=== PATIENT | male | born 1980 | race Two or more races ===

== ENCOUNTER 2025-04-27 08:36 | Inpatient (IN) ==
[2025-04-27] MEDS: OPTIRAY 320 125ml IV ONE (08:50)
--- NOTE | 2025-04-27 08:57 | CT Scan Report ---
CT head/brain wo con CLINICAL HISTORY: 45 years-old Male with neuro deficit, acute stroke suspected. Acute stroke like sy mptoms TECHNIQUE: Multiple axial CT images of the head were obtained without contrast. A dose lowering tech nique was utilized adhering to the principles of ALARA. COMPARISON: CTA head of same day FINDINGS: No acute intracranial hemorrhage, midline shift, intracranial mass, hydrocephalus, territorial ischem ia or abnormal extra-axial collection. The calvarium is intact. The paranasal sinuses, mastoid air cells, and middle ear cavities are clear . IMPRESSION: No acute intracranial abnormality. ACT 112: Negative or not required by law. The above report was generated using voice recognition software. It may contain grammatical, syntax o r spelling errors. Electronically signed by: Logan Gutierrez M.D. 04/27/2025 8:55 AM
--- NOTE | 2025-04-27 08:57 | CT Scan Report ---
CT ANGIOGRAPHY OF THE NECK WITH CONTRAST CLINICAL HISTORY: neuro deficit, acute stroke suspected COMPARISON STUDY: No previous studies for comparison. Technique: CT angiography of the carotid and vertebral arteries was obtained using Optiray and 3D rec onstruction on an independent workstation. NASCET criteria was utilized. Automated exposure control was utilized for the study. A dose lowering technique was utilized adhering to the principles of ALA RA. CT DOSE: 1153.16 mGy.cm Findings: Visualized portions of the lung apices are unremarkable. There is no cervical lymphadenopat hy. There are no cervical spine fractures. The bilateral common carotid, cervical internal carotid an d vertebral arteries are patent. No stenosis, aneurysm or dissection within the neck is present. Plea se note that the CTA of the head will be reported separately. IMPRESSION: Unremarkable CTA of the neck. ACT 112: Negative or not required by law. Electronically signed by: Kaushik Cui M.D. 04/27/2025 8:56 AM
--- NOTE | 2025-04-27 08:59 | CT Scan Report ---
CT angio head w con CLINICAL HISTORY: neuro deficit, acute stroke suspected. TECHNIQUE: Unenhanced axial CT scan of the brain is performed. Subsequently, following the IV adminis tration of 120 cc of Optiray, CT angiogram of the brain was performed from the skull base to the vert ex. Images are reviewed in the axial, sagittal, and coronal planes. 3-D MIPS images are created and a ssessed. IV contrast was administered without complication. All measurements were obtained according to NASCET criteria. A dose lowering technique was utilized adhering to the principles of ALARA. CT DOSE: 1153 COMPARISON STUDY: Head CT earlier today FINDINGS: Distal internal carotid and vertebral arteries are patent. Basilar artery is widely patent. Anterior, middle, and posterior cerebral arteries are patent. No intracranial aneurysm seen. Cerebra l venous sinuses opacify normally. IMPRESSION: No significant arterial narrowing or occlusion seen at the brain. ACT 112: Negative or not required by law. The above report was generated using voice recognition software. It may contain grammatical, syntax o r spelling errors. Electronically signed by: Vega Lemons M.D. 04/27/2025 8:57 AM
[2025-04-27 09:00] LABS: Hematocrit (blood only) 39.8 % (42.0-52.0); Hemoglobin 13.8 g/dl (14.0-18.0); Immature Granulocytes # (auto) 0.02 K/uL (0.01-0.20); Immature Granulocytes % (auto) 0.2 %; Mean Corpuscular Hemoglobin 30.1 pg (25.0-34.0); Mean Corpuscular Volume 86.9 fL (80.0-100.0); Platelet Count 198 K/uL (130-400); RDW Standard Deviation 37.8 fL (36.4-46.3); Red Blood Count 4.58 M/uL (4.70-6.10); White Blood Count 8.76 K/ul (4.8-10.8)
[2025-04-27 09:11] LABS: INR 1.1 (0.9-1.1); Partial Thromboplastin Time 22 Seconds (21-31); Prothrombin Time 12.3 Seconds (9.0-12.0)
--- NOTE | 2025-04-27 09:17 | Emergency Department Note ---
History of Present Illness General Chief complaint: Stroke Alert Stated complaint: STROKE ALERT Time Seen by Provider: 04/27/25 08:39 Source: patient Mode of arrival: EMS Limitations: no limitations History of Present Illness Patient is a 45-year-old male who presents this morning after he started to develop some dizziness and ambulatory dysfunction. He says he woke up around 6:30 in the morning feeling fine. He then developed sudden onset room spinning dizziness. When he got up to go to the bathroom he was "falling into the wall and door". When EMS arrived patient was still unsteady on his feet. He is from [facility] and does have an accent however family did note to EMS The speech sounds slurred to them. Repeat blood glucose level 198 per EMS. He did receive 4 mg of Zofran for associated nausea and vomiting. He does still report some mild room spinning dizziness at rest. No drug or ETOH use reported. Home Medications Medication Instructions Recorded Confirmed Type No Known Home Medications 11/10/24 04/27/25 History Allergies Allergy/AdvReac Type Severity Reaction Status Date / Time No Known Allergies Allergy Verified 11/10/24 13:45 Past Med/Surg History Problem List (Updated 04/27/25 @ 11:33 by Jose Bañuelos MD) Ataxia (Acute) Dizziness (Acute) Medical History (Updated 04/27/25 @ 11:33 by Jose Bañuelos MD) No pertinent past medical history Surgical History No pertinent past surgical history Family History Denies family history of Ovarian cancer Prostate cancer Heart disease Myocardial infarction Breast cancer Colorectal cancer Social History Smoking Status: Never smoker Second Hand Exposure: No; Do You Dip or Chew Tobacco: No; Hx Alcohol Use: No Hx Substance Use: No Preferred Language: Macedonian Communication Ability: Effective Visual Impairment: No Limitations Hearing Ability: Normal marital status: Current Living Situation: Alone current occupational status: employed How many Children do You have: 2 Feels Safe at Home: Yes Childhood Exposure to Second-Hand Smoke: No Diet: regular caffeine: No during the past year weight has: remained stable Dental Care, Regularly: Yes Physical Activity Frequency: 3-4 Times per Week Seatbelt Use: always Sunscreen Use: Yes Do you think of yourself as: straight/heterosexual Gender Identity: Male Review of Systems Review of systems negative outside of positive findings mentioned in HPI. Right Physical Exam Vital Signs Vital Signs - 24 hr 04/27/25 08:52 04/27/25 08:56 04/27/25 08:56 Temperature 36.5 C 36.5 C Temperature Source Oral Oral Pulse Rate 86 Pulse Rate [Apical] 86 Pulse Rhythm [Apical] Pulse Strength [Apical] Respiratory Rate 13 13 Respiratory Effort / Characteristics Respiratory Depth Respiratory Pattern Blood Pressure 141/80 H Blood Pressure [Right Arm] 141/80 H Blood Pressure Mean 100 Blood Pressure Mean [Right Arm] 100 Blood Pressure Position [Right Arm] Pulse Oximetry 99 99 Oxygen Delivery Method Room Air Room Air Room Air Sepsis Recent Fever Within 48 Hours No Sepsis New/Unexplained Change in Mental Status N/A Sepsis Action Taken by Nursing No Action Required Pulse Oximetry Post Tiitration 99 04/27/25 08:56 04/27/25 09:00 04/27/25 09:00 Temperature 36.5 C Temperature Source Oral Pulse Rate 70 Pulse Rate [Apical] 86 72 Pulse Rhythm [Apical] Regular Pulse Strength [Apical] Normal Respiratory Rate 13 18 Respiratory Effort / Characteristics Non-Labored Spontaneous Respiratory Depth Normal Respiratory Pattern Regular Blood Pressure Blood Pressure [Right Arm] 141/80 H 130/70 Blood Pressure Mean Blood Pressure Mean [Right Arm] 100 90 Blood Pressure Position [Right Arm] Pulse Oximetry 99 99 Oxygen Delivery Method Room Air Room Air Sepsis Recent Fever Within 48 Hours Sepsis New/Unexplained Change in Mental Status Sepsis Action Taken by Nursing Pulse Oximetry Post Tiitration 04/27/25 09:30 04/27/25 10:00 04/27/25 11:22 Temperature Temperature Source Pulse Rate Pulse Rate [Apical] 61 58 L 66 Pulse Rhythm [Apical] Regular Regular Pulse Strength [Apical] Normal Normal Respiratory Rate 20 16 18 Respiratory Effort / Characteristics Non-Labored Spontaneous Non-Labored Spontaneous Non-Labored Spontaneous Respiratory Depth Normal Normal Normal Respiratory Pattern Regular Regular Blood Pressure Blood Pressure [Right Arm] 134/65 115/71 129/64 Blood Pressure Mean Blood Pressure Mean [Right Arm] 88 85 85 Blood Pressure Position [Right Arm] Lying Pulse Oximetry 98 97 98 Oxygen Delivery Method Room Air Room Air Room Air Sepsis Recent Fever Within 48 Hours Sepsis New/Unexplained Change in Mental Status Sepsis Action Taken by Nursing Pulse Oximetry Post Tiitration See below. Constitutional WD/WN, vitals as above Eyes PERRL, conjunctivae normal, anicteric sclerae ENMT external ear and nose normal, oropharynx normal Respiratory normal respiratory effort, lungs clear to auscultation Cardiovascular RRR, no murmur, no edema Neurologic AAO x 3, cranial nerves II through XII are intact, 5 out of 5 strength in the upper extremities bilaterally, 5 out of 5 strength in lower extremities bilaterally, no sensation deficits noted to the large dermatomes of the face or extremities, dysmetria noted in both upper extremities on finger-nose testing, no dysmetria in the lower extremities, normal speech, NIH stroke scale of 2 Course Administered Medications Discontinued Medications Aspirin (Aspirin 81 Mg Chew) 81 mg PO NOW STA Stop: 04/27/25 10:33 Last Admin: 04/27/25 11:02 Dose: 81 mg Documented By: QGV Clopidogrel Bisulfate (Clopidogrel Bisulfate 300 Mg Tab) 300 mg PO NOW STA Stop: 04/27/25 10:21 Last Admin: 04/27/25 11:02 Dose: 300 mg Documented By: QGV Ioversol (Optiray 320 125ml) 118 ml IV ONCE ONE Stop: 04/27/25 08:50 Last Admin: 04/27/25 08:50 Dose: 118 ml Documented By: KSF Medical Decision Making Differential Diagnosis Posterior CVA, vertigo, labyrinthitis, atypical migraine Medical Records Attestation: I reviewed the patient's medical records. Home Medications Current Medication List: was personally reviewed by me Laboratory Data Attestation: I reviewed the patient's lab results. 04/27/25 08:51 04/27/25 08:51 Lab Results 04/27/25 04/27/25 04/27/25 Range/Units 08:50 08:51 08:55 WBC 8.76 (4.8-10.8) K/ul RBC 4.58 L (4.70-6.10) M/uL Hgb 13.8 L (14.0-18.0) g/dl POC Hgb 13.3 L (14.0-18.0) g/dl Hct 39.8 L (42.0-52.0) % POC Hct 39 L (42-52) % MCV 86.9 (80.0-100.0) fL MCH 30.1 (25.0-34.0) pg MCHC 34.7 (32.0-36.0) g/dL RDW Std Deviation 37.8 (36.4-46.3) fL RDW Coeff of Benny 11.9 (11.5-14.5) % Plt Count 198 (130-400) K/uL MPV 10.4 (9.4-12.4) fL Immature Gran % (Auto) 0.2 % Neut % (Auto) 80.8 % Lymph % (Auto) 12.4 % [place] % (Auto) 5.6 % Eos % (Auto) 0.7 % Baso % (Auto) 0.3 % Neut # (Auto) 7.07 H (1.40-6.50) K/uL Lymph # (Auto) 1.09 L (1.20-3.40) K/uL [place] # (Auto) 0.49 (0.11-0.59) K/uL Eos # (Auto) 0.06 (0.00-0.50) K/uL Baso # (Auto) 0.03 (0.00-0.20) K/uL Immature Gran # (Auto) 0.02 (0.01-0.20) K/uL PT 12.3 H (9.0-12.0) Seconds INR 1.1 (0.9-1.1) APTT 22 (21-31) Seconds PTT Ratio 0.8 POC Sodium 136 (135-144) mmol/L Sodium 133 L (136-145) mmol/L POC Potassium 3.6 (3.3-5.0) mmol/L Potassium 3.6 (3.5-5.1) mmol/L POC Chloride 100 L (101-112) mmol/L Chloride 103 (98-107) mmol/L Carbon Dioxide 23 (21-32) mmol/L POC Total CO2 19 L (24-31) mmol/L Anion Gap 7 (3-11) POC Anion Gap 21.0 (16-25) mmol/L POC BUN 14 (7-18) mg/dl BUN 15 (6-23) mg/dl Creatinine 0.95 (0.6-1.4) mg/dl POC Creatinine 1.0 (0.6-1.3) mg/dl Est Cr Clr Drug Dosing 101.4 ml/min eGFR 100.59 BUN/Creatinine Ratio 15.8 (10-20) Glucose 213 H (70-99(Fasting)) mg/dl POC Glucose 196 H (70-99) mg/dl POC Glucose (other) 200 H (70-99) mg/dl Calcium 8.3 L (8.6-10.3) mg/dl POC Ioniz Calcium [place] 1.09 L (1.12-1.32) mmol/l Magnesium 1.7 (1.7-2.4) mg/dl Total Bilirubin 3.0 H (0.2-1.0) mg/dl AST 17 (13-39) U/L ALT 14 (7-52) U/L Alkaline Phosphatase 35 (34-104) U/L Troponin I High Sens < 2.3 (0-20) pg/ml Total Protein 6.0 (6.0-8.3) gm/dl Albumin 3.7 (3.4-5.0) gm/dl Globulin 2.3 L (2.5-4.0) gm/dl Albumin/Globulin Ratio 1.6 (0.9-2) Blood Type AB Positive Antibody Screen NEGATIVE Imaging Data Radiologist's Impression: Head CT 04/27/25 08:39 CT head/brain wo con CLINICAL HISTORY: 45 years-old Male with neuro deficit, acute stroke suspected. Acute stroke like symptoms TECHNIQUE: Multiple axial CT images of the head were obtained without contrast. A dose lowering technique was utilized adhering to the principles of ALARA. COMPARISON: CTA head of same day FINDINGS: No acute intracranial hemorrhage, midline shift, intracranial mass, hydrocephalus, territorial ischemia or abnormal extra-axial collection. The calvarium is intact. The paranasal sinuses, mastoid air cells, and middle ear cavities are clear. IMPRESSION: No acute intracranial abnormality. ACT 112: Negative or not required by law. The above report was generated using voice recognition software. It may contain grammatical, syntax or spelling errors. Electronically signed by: Logan Gutierrez M.D. 04/27/2025 8:55 AM Head CTA 04/27/25 08:39 CT angio head w con CLINICAL HISTORY: neuro deficit, acute stroke suspected. TECHNIQUE: Unenhanced axial CT scan of the brain is performed. Subsequently, following the IV administration of 120 cc of Optiray, CT angiogram of the brain was performed from the skull base to the vertex. Images are reviewed in the axial, sagittal, and coronal planes. 3-D MIPS images are created and assessed. IV contrast was administered without complication. All measurements were obtained according to NASCET criteria. A dose lowering technique was utilized adhering to the principles of ALARA. CT DOSE: 1153 COMPARISON STUDY: Head CT earlier today FINDINGS: Distal internal carotid and vertebral arteries are patent. Basilar artery is widely patent. Anterior, middle, and posterior cerebral arteries are patent. No intracranial aneurysm seen. Cerebral venous sinuses opacify normally. IMPRESSION: No significant arterial narrowing or occlusion seen at the brain. ACT 112: Negative or not required by law. The above report was generated using voice recognition software. It may contain grammatical, syntax or spelling errors. Electronically signed by: Vega Lemons M.D. 04/27/2025 8:57 AM Neck CTA 04/27/25 08:39 CT ANGIOGRAPHY OF THE NECK WITH CONTRAST CLINICAL HISTORY: neuro deficit, acute stroke suspected COMPARISON STUDY: No previous studies for comparison. Technique: CT angiography of the carotid and vertebral arteries was obtained using Optiray and 3D reconstruction on an independent workstation. NASCET criteria was utilized. Automated exposure control was utilized for the study. A dose lowering technique was utilized adhering to the principles of ALARA. CT DOSE: 1153.16 mGy.cm Findings: Visualized portions of the lung apices are unremarkable. There is no cervical lymphadenopathy. There are no cervical spine fractures. The bilateral common carotid, cervical internal carotid and vertebral arteries are patent. No stenosis, aneurysm or dissection within the neck is present. Please note that the CTA of the head will be reported separately. IMPRESSION: Unremarkable CTA of the neck. ACT 112: Negative or not required by law. Electronically signed by: Kaushik Cui M.D. 04/27/2025 8:56 AM ECG Data Attestation: I personally reviewed and interpreted this ECG as follows: Indication: + other (CVA workup ) Rate (beats per minute): 81 Rhythm: + normal sinus ECG Intervals/blocks: + Normal QRS, + Normal QT and + Normal SC Comparison ECG Date: no prior available Change: no significant change MDM Narrative . Patient is a 45-year-old male who presents for dizziness and ataxia that started around 630 this morning. Last known well time was when he woke up around 6 AM. On arrival here in the emergency room he is still complaining of some room spinning dizziness and has some mild dysmetria on examination. His NIH stroke scale is 2. CT and CTA of the head and neck were ordered and nonconcerning for LVO or acute intracranial finding. Discussed the case with teleneurologist. He reviewed risks and benefits of TNK with the patient and decision was made to forego thrombolytics at this point with improvement and non-debilitating symptoms. Dual antiplatelet therapy was ordered per neurology's recommendations. Will admit for MRI and further CVA workup. Impression & Plan Dizziness, Ataxia Discharge Plan Visit Data Chief Complaint: Stroke Alert Stated Complaint: STROKE ALERT ED Provider: Jose Bañuelos Discharge Problem: Dizziness, Ataxia Patient Disposition: Admitted As Inpatient Condition: Good Forms Stand Alone Forms: [facility] Prescriptions Prescriptions: No Action No Known Home Medications Referrals Referrals: PCP,NO [Primary Care Provider] -
[2025-04-27 09:20] LABS: Alanine Aminotransferase 14 U/L (7-52); Albumin Globulin Ratio 1.6 (0.9-2); Alkaline Phosphatase 35 U/L (34-104); Anion Gap 7 (3-11); Bilirubin,Total 3.0 mg/dl (0.2-1.0); Blood Urea Nitrogen 15 mg/dl (6-23); Calcium 8.3 mg/dl (8.6-10.3); Carbon Dioxide 23 mmol/L (21-32); Chloride 103 mmol/L (98-107); Creatinine Clr Calc Pharmacy 101.4 ml/min; Globulin 2.3 gm/dl (2.5-4.0); Glucose 213 mg/dl (70-99(Fasting)); Magnesium 1.7 mg/dl (1.7-2.4); Potassium 3.6 mmol/L (3.5-5.1); Sodium 133 mmol/L (136-145); Total Protein 6.0 gm/dl (6.0-8.3)
[2025-04-27] MEDS ORDERED: ASPIRIN CHEW 324 MG PO STA (10:20)
[2025-04-27] MEDS: ASPIRIN 81 MG CHEW PO STA (11:02)
[2025-04-27] MEDS: CLOPIDOGREL BISULFATE 300 MG TAB PO STA (11:02)
--- NOTE | 2025-04-27 12:23 | Electrocardiogram Report ---
Test Reason : Blood Pressure : */* mmHG Vent. Rate : 81 BPM Atrial Rate : 81 BPM P-R Int : 184 ms QRS Dur : 100 ms QT Int : 402 ms P-R-T Axes : -24 -7 -24 degrees QTcB Int : 466 ms Normal sinus rhythm Low voltage QRS Cannot rule out Inferior infarct , age undetermined Abnormal ECG No previous ECGs available Confirmed by You Hart ([id number]) on 04/27/2025 12:23:48 PM Referred By: REFERRED SELF Confirmed By: You Hart
[2025-04-27 12:48] LABS: Hemoglobin A1C 5.0 % (4.5-5.6)
[2025-04-27 12:57] LABS: Bilirubin,Total 3.2 mg/dl (0.2-1.0); Cholesterol 154.0 mg/dl (0-200); HDL Cholesterol 58.0 mg/dl; Triglycerides 45.0 mg/dl (0-150)
--- NOTE | 2025-04-27 13:11 | History & Physical Report ---
Date of Service April 27, 2025 Assessment & Plan (1) Ataxia: (2) Dizziness: (3) Hyperbilirubinemia: Plan 45 year old male with no significant PMHx presents with acute onset vertigo with associated ambulatory dysfunction: #Dizziness // #Gait ataxia: CTH w/o contrast, CTA head and neck negative Initial presentation suspicious for posterior circulation stroke vs vestibular neuritis - MRI brain w/o contrast confirms presence of acute right cerebellar infarct - TTE pending - Start DAPT x21 days followed by aspirin monotherapy - Minimal vascular risk factors (A1c 5%, LDL 89, BP WNL), more likely cardioembolic etiology vs other (?vasculitis, will check ESR with AM labs) - Neurology consult placed, appreciate recs PT/OT eval and treat #Hyperbilirubinemia: Tbili 3.2, direct bili 0.2, likely Gilbert's disease Dispo: Admit med/tele VTE ppx: Lovenox Diet: Regular Full Code History of Present Illness Primary Care Provider: NO PCP 45 year old male with no significant PMHx presents with acute onset vertigo that started at 0630 this AM. Pt states that he immediately felt dizzy upon waking up, describes it as a spinning sensation. Constant but exacerbated with head position changes. Patient also experienced impaired balance, had a hard time walking straight after getting out of bed, denies favoring one side over the other. In addition to impaired balance, patient also states that he had bilateral LE weakness that contributed to gait impairment. Denies UE extremity weakness but states that he had transient bilateral UE numbness, now resolved. LE weakness now resolved as well. felt patient was mildly dysarthric initially, slurring slightly but patient did not necessarily notice any difference. Patient denies personal of FHx of stroke, SD, HTN, HLD, T2DM. Denies previous occurrence of similar sx. Denies recent illness, fever/chills. Denies changes in hearing acuity. Vertiginous sx have been continuous since waking up this morning, still present at this time though perhaps slightly less intense. Also reports nausea, brief episode of dry heaving first thing after getting up this morning. Denies significant EtOH or tobacco use. ED course: CT head w/o contrast, CTA head and neck all negative. S/P Plavix 300mg and ASA 81mg Allergies Allergy/AdvReac Type Severity Reaction Status Date / Time No Known Allergies Allergy Verified 11/10/24 13:45 Home Medications Medication Instructions Recorded Confirmed Type No Known Home Medications 11/10/24 04/27/25 History Past Med/Surg History Problem List (Updated 04/27/25 @ 13:24 by Juancarlos Bautista DO) Hyperbilirubinemia Ataxia (Acute) Dizziness (Acute) Medical History (Updated 04/27/25 @ 13:24 by Juancarlos Bautista DO) No pertinent past medical history Surgical History No pertinent past surgical history Family History Denies family history of Ovarian cancer Prostate cancer Heart disease Myocardial infarction Breast cancer Colorectal cancer Social History Smoking Status: Never smoker Second Hand Exposure: No; Do You Dip or Chew Tobacco: No; Hx Alcohol Use: No Hx Substance Use: No Preferred Language: Prydeinig Communication Ability: Effective Visual Impairment: No Limitations Hearing Ability: Normal Nut Tapper Required: No Beliefs That Will Affect Care: None marital status: Current Living Situation: Family current occupational status: employed How many Children do You have: 2 Feels Safe at Home: Yes Safety Concerns: Feels Safe At This Time Childhood Exposure to Second-Hand Smoke: No Diet: regular caffeine: No during the past year weight has: remained stable Dental Care, Regularly: Yes Physical Activity Frequency: 3-4 Times per Week Seatbelt Use: always Sunscreen Use: Yes Do you think of yourself as: straight/heterosexual Gender Identity: Male Review of Systems Review of Systems: as per HPI Physical Exam Physical Exam: Constitutional: no acute distress HEENT: NCAT, no conjunctival injection CV: RRR, extremities well-perfused, no LE edema Resp: Lungs clear to auscultation bilaterally, no increased work of breathing GI: nondistended MSK: no gross deformities, strength 5/5 in extremities, symmetrical bilaterally Skin: warm, dry, no rash appreciated Neuro: alert, oriented, no focal neurologic deficit appreciated. Cranial nn II- XII intact. Sensation intact, symmetrical bilaterally in face trunk and extremities. Strength 5/5 in upper and lower extremities, symmetrical bilaterally. +Romberg. Results & Data Results & Data Vital Signs (Past 12 Hours) Vital Signs Temp Pulse Pulse Resp BP BP Pulse Ox 04/27/25 12:35 57 L 18 129/66 97 04/27/25 11:22 66 18 129/64 98 04/27/25 10:00 58 L 16 115/71 97 04/27/25 09:30 61 20 134/65 98 04/27/25 09:00 72 18 130/70 99 04/27/25 09:00 70 04/27/25 08:56 36.5 C 86 13 141/80 H 99 04/27/25 08:56 04/27/25 08:56 36.5 C 86 13 141/80 H 99 04/27/25 08:52 36.5 C 86 13 141/80 H 99 O2 Del Method 04/27/25 12:35 Room Air 04/27/25 11:22 Room Air 04/27/25 10:00 Room Air 04/27/25 09:30 Room Air 04/27/25 09:00 Room Air 04/27/25 09:00 04/27/25 08:56 Room Air 04/27/25 08:56 Room Air 04/27/25 08:56 Room Air 04/27/25 08:52 Room Air Supervising Physician Co-Signing Physician Notes I personally examined the patient and verified all mendoza points of history and exam, discussed case, and agree with decision making with Dr Bautista severely dizzy this AM - slightly better now vitals noted nad heent nc at mmm breathing unlabored no accessory muscles good effort skin no rashes no pallor or icterus labs and diagnostics reviewed, MRI images personally reviewed as well cerebellar stroke -excessively unlikely to be atherosclerotic/atheroembolic (no real risks and no disease noted on vascular imaging) -?central embolic (follow rhythm, check echo) -?vasculitis (check ESR) -consult neuro to assist in ?etiology and secondary risk reduction -PT/OT eval and treat Resident Activity Tracking Resident Involvement: Resident Care Provided Care Provided: Adult Hospital Medicine
[2025-04-27] MEDS ORDERED: PHARMACIST DISCHARGE MED REC CONSULT PRN (13:29)
[2025-04-27] MEDS ORDERED: MELATONIN 3 MG TAB PO PRN (13:29)
[2025-04-27] MEDS: ONDANSETRON INJ 2 MG/ML 2 ML VIAL IV PRN (13:39)
[2025-04-27] MEDS: SODIUM CHLORIDE 0.9% 1,000 ML IV SCH (15:41)
--- NOTE | 2025-04-27 17:36 | Magnetic Resonance Report ---
Clinical History: None provided Technique: Multiple T1 and T2-weighted magnetic resonance images were obtained of the brain without gadolinium contrast No prior examination is available for comparison Findings: There is an acute infarct of the right cerebellar hemisphere with restricted diffusion and increased T2 signal intensity. This measures approximately 3 x 2.6 cm. No definite focus of demyelination is seen. No definite mass lesion is seen on this noncontrast study. There is no intracranial hemorrhage or other fluid collection. No midline shift or other form of herniation is seen. There is no hydrocephalus. Normal flow-voids are seen within the arteries of the [id number]. The orbits and paranasal sinuses appear normal. The mastoid air cells appear clear. Impression: Acute infarct of the right cerebellum ACT 112: Positive. There are findings on this exam that require communication between the performing entity and the patient following Patient Test Result Information Act ([place] ACT 112) guidelines. Electronically signed by Juliocesar Eason 04-27-2025 5:35 PM
--- NOTE | 2025-04-27 18:37 | Billing Data ---
Date of Service April 27, 2025 Coding Level of Care Code 15937 INT INP/OBS CARE
[2025-04-28 06:23] LABS: Hematocrit (blood only) 40.0 % (42.0-52.0); Hemoglobin 14.6 g/dl (14.0-18.0); Immature Granulocytes # (auto) 0.03 K/uL (0.01-0.20); Immature Granulocytes % (auto) 0.3 %; Mean Corpuscular Hemoglobin 31.8 pg (25.0-34.0); Mean Corpuscular Volume 87.1 fL (80.0-100.0); Platelet Count 233 K/uL (130-400); RDW Standard Deviation 38.1 fL (36.4-46.3); Red Blood Count 4.59 M/uL (4.70-6.10); White Blood Count 11.39 K/ul (4.8-10.8)
[2025-04-28 07:02] LABS: Anion Gap 7.0 (3-11); Blood Urea Nitrogen 11.0 mg/dl (6-23); Calcium 9.0 mg/dl (8.6-10.3); Carbon Dioxide 26.0 mmol/L (21-32); Chloride 106.0 mmol/L (98-107); Creatinine Clr Calc Pharmacy 115.9 ml/min; Glucose 97.0 mg/dl (70-99(Fasting)); Potassium 3.7 mmol/L (3.5-5.1); Sodium 139.0 mmol/L (136-145)
[2025-04-28] MEDS: CLOPIDOGREL BISULFATE 75 MG TAB PO SCH (08:26)
[2025-04-28] MEDS: ASPIRIN 81 MG ECTAB PO SCH (08:26)
[2025-04-28] MEDS: ENOXAPARIN INJ 40 MG/0.4 ML SYR SQ SCH (08:26)
[2025-04-28] MEDS: ACETAMINOPHEN 500 MG TAB PO PRN (08:52)
--- NOTE | 2025-04-28 09:39 | Neurology Consultation ---
Date of Consultation April 28, 2025 Assessment & Plan (1) Ischemic stroke: History of Present Illness Attending Physician: Rodolfo Brizuela DO History of Present Illness S: pt feeling better this morning but still little dizzy. mri showing rt cerebellum ischemic stroke. chart reviewed. Admission HPI: 45 year old male with no significant PMHx presents with acute onset vertigo that started at 0630 this AM. Pt states that he immediately felt dizzy upon waking up, describes it as a spinning sensation. Constant but exacerbated with head position changes. Patient also experienced impaired balance, had a hard time walking straight after getting out of bed, denies favoring one side over the other. In addition to impaired balance, patient also states that he had bilat eral LE weakness that contributed to gait impairment. Denies UE extremity weakness but states that he had transient bilateral UE numbness, now resolved. LE weakness now resolved as well. felt patient was mildly dysarthric initially, slurring slightly but patient did not necessarily notice any difference. Patient denies personal of FHx of stroke, PA, HTN, HLD, T2DM. Denies previous occurrence of similar sx. Denies recent illness, fever/chills. Denies changes in hearing acuity. Vertiginous sx have been continuous since waking up this morning, still present at this time though perhaps slightly less intense. Also reports nausea, brief episode of dry heaving first thing after getting up this morning. Denies significant EtOH or tobacco use. Allergies Allergy/AdvReac Type Severity Reaction Status Date / Time No Known Allergies Allergy Verified 11/10/24 13:45 Home Medications Medication Instructions Recorded Confirmed Type No Known Home Medications 11/10/24 04/27/25 History Patient History Medical History (Updated 04/28/25 @ 09:38 by Jonathan Woodson MD) No pertinent past medical history Surgical History No pertinent past surgical history Family History Denies family history of Ovarian cancer Prostate cancer Heart disease Myocardial infarction Breast cancer Colorectal cancer Social History Smoking Status: Never smoker Second Hand Exposure: No; Do You Dip or Chew Tobacco: No; Hx Alcohol Use: No Hx Substance Use: No Preferred Language: Setswana Communication Ability: Effective Visual Impairment: No Limitations Hearing Ability: Normal Loft Patternmaker Required: No Beliefs That Will Affect Care: None marital status: Current Living Situation: Family current occupational status: employed How many Children do You have: 2 Feels Safe at Home: Yes Safety Concerns: Feels Safe At This Time Childhood Exposure to Second-Hand Smoke: No Diet: regular caffeine: No during the past year weight has: remained stable Dental Care, Regularly: Yes Physical Activity Frequency: 3-4 Times per Week Seatbelt Use: always Sunscreen Use: Yes Do you think of yourself as: straight/heterosexual Gender Identity: Male Review of Systems Review of Systems: All systems reviewed & are unremarkable except as noted in Subjective Constitutional: as per Subjective / HPI Eyes: as per Subjective / HPI Ear, Nose, Mouth, Throat: as per Subjective / HPI Respiratory: as per Subjective / HPI Cardiovascular: as per Subjective / HPI Gastrointestinal: as per Subjective / HPI Musculoskeletal: as per Subjective / HPI Integumentary: as per Subjective / HPI Neurologic: as per Subjective / HPI Psychiatric: as per Subjective / HPI Endocrine: as per Subjective / HPI Hematologic / Lymphatic: as per Subjective / HPI Allergy / Immunological: as per Subjective / HPI Exam (Neuro) Physical Exam: HEENT: normocephalic Neuro: Mental: AOx4, fluent speech, normal comprehension, no apraxia, no L/R confusion, no neglect CN: PERRL, Full EOM, symmetric face, midline T/U/P, 5/5 SCM/traps. Motor: No abnormal movements, normal tone and bulk, 5/5 t/o bilaterally Sens: intact to touch b/l grossly Coord:RUE dysmetria noted. DTR: 2+ sym b/l Impression: 45 yo male with acute rt cerebellum ischemic stroke, stable with improving symptoms. Recommendations: 1. Standard stroke work up as planned 2. antiplatelet therapy: agree with 21 d ays DAPT. * DAPT (dual antiplatelet therapy): start for pts with ABCD2 score 4 or higher. Initial loading dose with ASA 325mg and Plavix 300mg (if pt has not been started), then ASA 81mg daily and Plavix 75mg daily. Continue DAPT for 21 days if found small vessel disease only or continue for 90 days if found to have intracranial large artery atherosclerosis. After that, can continue single antiplatelet therapy (either ASA or Plavix). CTA head/neck negative. 4. Permissive Hypertension for next 24-4 8 hrs. Keep SBP goal range less than 220. Avoid hypotension. Do not stop beta-nico if on it. 6. Long-term SBP goal less than 130. 7. Plenty of hydration including IV flui d if possible (use isotonic solution) next 1-2 days. Avoid hypovolemia and hypotension. 8. Initiate DVT prevention therapy. 9. Avoid hypoglycemia, serum glucose goa l during hospitalization: 140-180. 10. Long-term HgA1c goal less than 7. 11. Start statin if not on it and no abs olute contraindication, long-term LDL goal less than 70. 14. Telemetry monitoring. Consider usp cardiac monitoring, i.e. MCOT (mobile cardiac outpatient telemetry) or ICM (insertable bus monitor, e.g. LINQ), if never had usp cardiac monitoring done previously. And if found to have atrial flutter or fibrillation, should consider anticoagulation therapy if no contraindication. 15. Fall precaution 16. Consult physical and occupational th independencepy call again if new question. Chart reviewed I have spent more than 50% educating patient about potential diagnosis and neurological evaluation and coordinating care with patient's treatment team. Total time spent (including chart review and coordination of care): 60 min (this includes chart review). Results & Data Vital Signs (Past 12 Hours) Vital Signs Temp Pulse Pulse Resp BP BP Pulse Ox 04/28/25 07:48 36.9 C 69 20 135/67 97 04/28/25 07:10 71 04/28/25 02:17 37 C 65 16 131/73 95 04/27/25 22:05 37.1 C 67 18 132/69 97 04/27/25 21:55 59 L O2 Del Method 04/28/25 07:48 Room Air 04/28/25 07:10 04/28/25 02:17 Room Air 04/27/25 22:05 Room Air 04/27/25 21:55 PG Care Time/CCT Total # of Minutes Spent Total Time Spent with Patient: Total time spent is greater than 50% in coordination of care (as documented) at patient's floor/unit and/or counseling patient: Coding Level of Care Code 35129 IN/OBS CONSULT LVL 4,60M Diagnoses Ischemic stroke I63.9
--- NOTE | 2025-04-28 10:40 | XCELERA ---
[id number]
--- NOTE | 2025-04-28 11:45 | Hospitalist Progress Note ---
Date of Service April 28, 2025 Assessment & Plan (1) Ataxia: (2) Dizziness: (3) Hyperbilirubinemia: Plan 45 year old male with no significant PMHx presents with acute onset vertigo with associated ambulatory dysfunction: #Dizziness // #Gait ataxia: CTH w/o contrast, CTA head and neck negative Initial presentation suspicious for posterior circulation stroke vs vestibular neuritis - MRI brain w/o contrast confirms presence of acute right cerebellar infarct - Echo showed PFO which points to the direction towards a paradoxical emboli. - MRV shows no venous thrombosis. - TTE pending. - Start DAPT x21 days followed by aspirin monotherapy - Minimal vascular risk factors (A1c 5%, LDL 89, BP WNL), more likely cardioembolic etiology vs other (vasculitis, ESR N) - Neurology consult placed, appreciate recs -Cardio consult recommend Transesophageal echo to better characterize the atrial septal defect as PFO versus ASD -Ordered D-dimer to R/o DVT. PT/OT eval and treat #Hyperbilirubinemia: Tbili 3.2, direct bili 0.2, likely Gilbert's disease Dispo: Admit med/tele VTE ppx: Lovenox Diet: Regular Full Code Admission and Anticipated Discharge Date Admission Date: April 27, 2025 Supervising Physician Co-Signing Physician Notes I personally examined the patient and verified all mendoza points of history and exam, discussed case, and agree with decision making with Dr Bautista severely dizzy this AM - slightly better now vitals noted nad heent nc at mmm breathing unlabored no accessory muscles good effort skin no rashes no pallor or icterus labs and diagnostics reviewed, MRI images personally reviewed as well cerebellar stroke -excessively unlikely to be atherosclerotic/atheroembolic (no real risks and no disease noted on vascular imaging) -?central embolic ?PFO as culprit (await TEJA, further input from neuro, check venous dopplers) -vasculitis unlikley ESR low -?primary hypercoag state -appreciate cardio and neuro assistance -PT/OT eval and treat Subjective Presented with vertigo like" spinnning of room" sensation since waking up in the morning and disbalance. Today feels slight dizzy, needs somebody to watch him even when he's going to bathroom because of fear of falling down. Discoordination of his right hand when he tries to grab something or doing any activity with his right hand. No H/o hearing difficulty, weakness, facial deviation, cognitive slowing. Review of Systems Review of Systems: as per HPI Physical Exam Physical Exam: Constitutional: no acute distress HEENT: NCAT, no conjunctival injection CV: RRR, extremities well-perfused, no LE edema Resp: Lungs clear to auscultation bilaterally, no increased work of breathing GI: nondistended MSK: no gross deformities, strength 5/5 in extremities, symmetrical bilaterally Skin: warm, dry, no rash appreciated Neuro: alert, oriented, no focal neurologic deficit appreciated. Cranial nn II- XII intact. Sensation intact, symmetrical bilaterally in face trunk and extremities. Strength 5/5 in upper and lower extremities, symmetrical bilaterally. +Romberg. Results & Data Results & Data Vital Signs (Past 12 Hours) Vital Signs Temp Pulse Pulse Resp BP BP Pulse Ox 04/28/25 11:04 36.3 C L 64 18 130/75 97 04/28/25 07:48 36.9 C 69 20 135/67 97 04/28/25 07:10 71 04/28/25 02:17 37 C 65 16 131/73 95 O2 Del Method 04/28/25 11:04 Room Air 04/28/25 07:48 Room Air 04/28/25 07:10 04/28/25 02:17 Room Air Resident Activity Tracking Resident Involvement: Resident Care Provided Care Provided: Adult Hospital Medicine
--- NOTE | 2025-04-28 12:19 | Pharmacy Report ---
- Date of Service April 28, 2025 - Pharmacy CVA/TIA Medication Review Medications to Prevent Stroke handout has been added to the patients discharge packet. Antiplatelet(s) * Aspirin 81 mg PO daily + Plavix 75 mg PO daily Cholesterol * High intensity statin deferred due to 10 year ASCVD risk of 1.1% and highly unlikely that atherosclerosis is causative given fasting lipid panel and age. DVT Prophylaxis * Enoxaparin SQ Therapeutic Anticoagulation * No history of Afib/Aflutter noted. However, patient was found to have PFO on TTE. Cardiology consult pending to determine closure vs antiplatelets vs anticoagulants Type 2 Diabetes * Patient does not have T2DM
--- NOTE | 2025-04-28 13:22 | Magnetic Resonance Report ---
MR venography head wo con CLINICAL HISTORY: Right cerebellar infarct. COMPARISON STUDY: Head CT, CTA of the head and MRI of the brain April 27, 2025. TECHNIQUE: Utilizing a 1.5 Ewa magnet and dedicated coil, MR venography of the head was obtained ut ilizing [id number] technique. No intravenous contrast was administered. FINDINGS: The brain parenchyma suboptimally assessed utilizing this technique. However, the acute inf arct within the superior right cerebellar hemisphere is again noted. The superior sagittal sinus is p atent. The straight sinus is patent. The bilateral transverse and sigmoid sinuses are patent. There i s asymmetric decreased caliber of the right transverse sinus without evidence for dural sinus thrombo sis. The proximal bilateral internal jugular veins are patent. IMPRESSION: 1. No evidence for dural sinus thrombosis. 2. Redemonstration of the right superior cerebellar artery territory acute infarct. ACT 112: Negative or not required by law. Electronically signed by: Kaushik Cui M.D. 04/28/2025 1:21 PM
--- NOTE | 2025-04-28 14:16 | Cardiology Consultation ---
Date of Consultation April 28, 2025 Assessment & Plan (1) PFO (patent foramen ovale): (2) Ischemic stroke: Plan ASSESSMENT/PLAN: 1. PFO: We discussed echo findings. Given acute stroke and young age, recommend transesophageal echo to better characterize the atrial septal defect as PFO versus ASD. Also will evaluate for left atrial appendage thrombus or any other possible finding that could represent embolic risk. Antiplatelet therapy as outlined by neurology. If neurology feels as though the PFO could be responsible for the stroke, would consider evaluation with interventional cardiology at a facility that performs PFO closure to discuss options. 2. Stroke: As per neurology. Plan as above in regards to PFO. Stroke occurred without antiplatelet therapy prior to the event. Recommend 30-day event monitor with consideration for loop recorder to evaluate for atrial fibrillation/flutter. 3. Disposition: Cardiology will continue to follow along. Tentatively planning for transesophageal echo on 04/29/2025. Risks and benefits of the procedure were discussed with him in detail and he was agreeable to proceed. Patient care communicated with Dr. Brizuela of the primary hospitalist service. Thank you for allowing me to participate in the care of your patient. Please call for any other questions or concerns. Sincerely, Gurjit Anderson M.D. History of Present Illness Reason for Consultation: PFO and stroke Requesting Physician: Rodolfo Brizuela DO Attending Physician: Rodolfo Brizuela DO History of Present Illness Mr. Hernandez is a very pleasant 45-year-old gentleman who was hospitalized on 04/27/2025 with right cerebellum ischemic stroke. He presented with acute dizziness and diaphoresis. He underwent brain MRI which demonstrated right cerebellar stroke. He has been seen by neurology who recommended dual antiplatelet therapy for 21 days, followed by single antiplatelet therapy. He states that he is nearly back to baseline but still has some coordination issues while trying to walk. He denies focal weakness, sensation issues, memory loss, chest pain, shortness of breath, syncope, near syncope, palpitations, edema, or bleeding such as melena, hematochezia, or hematuria. He denies a history of clot or embolic event. He has had the following studies/procedures: 1. Echo 04/28/2025: Normal LV size, wall motion, systolic function. EF 65-70%. No LVH. No significant valvular abnormalities. Small [id number]-sx-[id number] interatrial shunt noted with agitated saline administration, suggesting PFO. Review of systems: As above. Family history: No known premature CAD. Social history: Denies tobacco, alcohol, or drug abuse. Lives at home with his and 2 sons (ages 15 and 16). He is originally from [facility], lived in [place], and moved to the in [place] 2024. 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 He was unaccompanied. Allergies Allergy/AdvReac Type Severity Reaction Status Date / Time No Known Allergies Allergy Verified 11/10/24 13:45 Home Medications Medication Instructions Recorded Confirmed Type No Known Home Medications 11/10/24 04/27/25 History Problem List (Updated 04/28/25 @ 15:04 by See Anderson MD) PFO (patent foramen ovale) Encounter for pre-operative examination Ischemic stroke Hyperbilirubinemia Dizziness (Acute) Patient History Medical History Ataxia CVA (cerebral vascular accident) Surgical History No pertinent past surgical history Family History Denies family history of Ovarian cancer Prostate cancer Heart disease Myocardial infarction Breast cancer Colorectal cancer Social History Smoking Status: Never smoker Second Hand Exposure: No; Do You Dip or Chew Tobacco: No; Hx Alcohol Use: No Hx Substance Use: No Preferred Language: Kazakh Communication Ability: Effective Visual Impairment: No Limitations Hearing Ability: Normal Financial Systems Administrator Required: No Beliefs That Will Affect Care: None marital status: Current Living Situation: Family current occupational status: employed How many Children do You have: 2 Feels Safe at Home: Yes Childhood Exposure to Second-Hand Smoke: No Diet: regular caffeine: No during the past year weight has: remained stable Dental Care, Regularly: Yes Physical Activity Frequency: 3-4 Times per Week Seatbelt Use: always Sunscreen Use: Yes Do you think of yourself as: straight/heterosexual Gender Identity: Male Physical Exam Physical Exam: Gen.: No acute distress. Alert and oriented. HEENT: Anicteric sclera. Neck: No JVD. No bruits. Normal carotid upstrokes bilaterally. Cardiac: Regular. Normal S1-S2. No murmurs, rubs, or gallops. Pulmonary: Clear to auscultation bilaterally without wheezes, rales, or rhonchi. Abdomen: Soft, nontender, nondistended, with normoactive bowel sounds. No bruits noted. Extremities: 2+ radial pulses bilaterally. 2+ posterior tibialis pulses bilaterally. No edema or cyanosis. Results & Data Vital Signs (Past 12 Hours) Vital Signs Temp Pulse Pulse Resp BP BP Pulse Ox 04/28/25 11:04 36.3 C L 64 18 130/75 97 04/28/25 07:48 36.9 C 69 20 135/67 97 04/28/25 07:10 71 04/28/25 02:17 37 C 65 16 131/73 95 O2 Del Method 04/28/25 11:04 Room Air 04/28/25 07:48 Room Air 04/28/25 07:10 04/28/25 02:17 Room Air Laboratory Results Laboratory Results - last 24 hr 04/28/25 04/28/25 05:38 14:15 WBC 11.39 H RBC 4.59 L Hgb 14.6 Hct 40.0 L MCV 87.1 MCH 31.8 MCHC 36.5 H RDW Std Deviation 38.1 RDW Coeff of Benny 11.9 Plt Count 233 MPV 10.6 Immature Gran % (Auto) 0.3 Neut % (Auto) 69.9 Lymph % (Auto) 20.7 Wallace % (Auto) 8.5 Eos % (Auto) 0.4 Baso % (Auto) 0.2 Neut # (Auto) 7.97 H Lymph # (Auto) 2.36 Wallace # (Auto) 0.97 H Eos # (Auto) 0.04 Baso # (Auto) 0.02 Immature Gran # (Auto) 0.03 ESR < 1 D-Dimer Pending Sodium 139 Potassium 3.7 Chloride 106 Carbon Dioxide 26 Anion Gap 7 BUN 11 Creatinine 0.82 Est Cr Clr Drug Dosing 115.9 eGFR 110.40 BUN/Creatinine Ratio 13.4 Glucose 97 Calcium 9.0 Diagnostic Findings Labs reviewed and notable for normal hemoglobin, normal potassium, normal renal function, normal transaminase levels, normal magnesium, normal A1c, reasonable lipids. D-dimer is pending. High-sensitivity troponin undetectable. Neurology consultation report and history and physical note reviewed. Brain MRI report reviewed 04/27/2025: Acute infarct of the right cerebellum. Head/brain mag Res venography 04/28/2025: No evidence of dural sinus thrombosis. Right superior cerebellar artery territory acute infarct. Neck CTA 04/27/2025: Unremarkable per radiology. Head CT 8 04/27/2025: No significant arterial narrowing or occlusion seen in the brain per radiology. Telemetry personally reviewed: Sinus rhythm. ECG personally reviewed 04/27/2025: Sinus rhythm 81 bpm. Echo report reviewed as noted above in HPI. Medications Administered Current Inpatient Medications Acetaminophen (Acetaminophen 500 Mg Tab) 1,000 mg PO Q8H PRN PRN Reason: Pain or Fever Stop: 05/27/25 16:13 Last Admin: 04/28/25 08:52 Dose: 1,000 mg Aspirin (Aspirin 81 Mg Ectab) [facility] Stop: 05/28/25 08:59 Last Admin: 04/28/25 08:26 Dose: 81 mg Clopidogrel Bisulfate (Clopidogrel Bisulfate 75 Mg Tab) 75 mg PO QAM [facility] Stop: 05/28/25 08:59 Last Admin: 04/28/25 08:26 Dose: 75 mg Enoxaparin Sodium (Enoxaparin Inj 40 Mg/0.4 Ml Syr) 40 mg SQ QAM [facility] Stop: 05/28/25 08:59 Last Admin: 04/28/25 08:26 Dose: 40 mg Melatonin (Melatonin 3 Mg Tab) 3 mg PO HS PRN PRN Reason: Insomnia Stop: 05/27/25 13:28 Miscellaneous Information (Pharmacist Discharge Med Rec Consult) 1 each N/A UD PRN PRN Reason: Consult Stop: 05/27/25 13:28 Ondansetron HCl (Ondansetron Inj 2 Mg/Ml 2 Ml Vial) 4 mg IV Q6H PRN PRN Reason: Nausea Stop: 05/27/25 13:28 Last Admin: 04/28/25 09:56 Dose: 4 mg PG Care Time/CCT Total # of Minutes Spent Total Time Spent with Patient: Total time spent is greater than 50% in coordination of care (as documented) at patient's floor/unit and/or counseling patient: Coding Level of Care Code 31089 INT INP/OBS CARE Diagnoses PFO (patent foramen ovale) Q21.12 Ischemic stroke I63.9
--- NOTE | 2025-04-28 14:56 | Anesthesiology Consultation ---
Date of Service April 28, 2025 Assessment & Plan (1) Encounter for pre-operative examination: Chart Review Chart Review: Acceptable Risk for Surgery History Height/Weight Height: 5 ft 10 in Weight: 72 kg Allergies Allergy/AdvReac Type Severity Reaction Status Date / Time No Known Allergies Allergy Verified 11/10/24 13:45 Medications Home Medications Medication Instructions Recorded Confirmed Last Taken No Known Home Medications 11/10/24 04/27/25 Unknown Active Medications Generic Name Dose Route Start Last Admin Trade Name Freq PRN Reason Stop Dose Admin Acetaminophen 1,000 mg 04/27/25 16:14 04/28/25 08:52 Acetaminophen 500 Mg Tab PO 05/27/25 16:13 1,000 mg Q8H PRN Administration Pain or Fever Aspirin 81 mg 04/28/25 09:00 04/28/25 08:26 Aspirin 81 Mg Ectab PO 05/28/25 08:59 81 mg QAM FIGUEROA Administration Clopidogrel Bisulfate 75 mg 04/28/25 09:00 04/28/25 08:26 Clopidogrel Bisulfate 75 Mg Tab PO 05/28/25 08:59 75 mg QAM FIGUEROA Administration Enoxaparin Sodium 40 mg 04/28/25 09:00 04/28/25 08:26 Enoxaparin Inj 40 Mg/0.4 Ml Syr SQ 05/28/25 08:59 40 mg QAM FIGUEROA Administration Ondansetron HCl 4 mg 04/27/25 13:29 04/28/25 09:56 Ondansetron Inj 2 Mg/Ml 2 Ml Vial IV 05/27/25 13:28 4 mg Q6H PRN Administration Nausea Past Medical History Medical History (Updated 04/28/25 @ 14:56 by Levi Montalvo MD) Ataxia CVA (cerebral vascular accident) Past Family History Family History Denies family history of Ovarian cancer Prostate cancer Heart disease Myocardial infarction Breast cancer Colorectal cancer Past Surgical History Surgical History No pertinent past surgical history Social History Smoking Status: Never smoker Do You Dip or Chew Tobacco: No Hx Alcohol Use: No Hx Substance Use: No Physical Exam Vital Signs Last Vital Signs Temp 36.3 C L 04/28/25 11:04 Pulse 67 04/28/25 14:24 Resp 18 04/28/25 11:04 BP 130/75 04/28/25 11:04 Pulse Ox 97 04/28/25 11:04 O2 Del Method Room Air 04/28/25 11:04 Testing Laboratory Results 04/28/25 05:38 04/28/25 05:38 PT 12.3 Seconds (9.0-12.0) H 04/27/25 08:51 INR 1.1 (0.9-1.1) 04/27/25 08:51 APTT 22 Seconds (21-31) 04/27/25 08:51 Hemoglobin A1c 5.0 % (4.5-5.6) 04/27/25 08:51 Blood Type AB Positive 04/27/25 08:51 Antibody Screen NEGATIVE 04/27/25 08:51 Echocardiogram Date: 04/28/25 EF: 65-70% LV Function: normal Valvular Disease: + no significant valvular disease small interatrial shunt
--- NOTE | 2025-04-28 16:20 | Billing Data ---
Date of Service April 28, 2025 Coding Level of Care Code 55600 SUB INP/OBS CARE MIN
--- NOTE | 2025-04-29 06:57 | Communication Note ---
Date of Service: April 29, 2025 04/27/20251958-FLI-[id number] @ 81;low voltage QRS
[2025-04-29] MEDS ORDERED: PROPOFOL IV EMULSION 10 MG/ML 20 ML VIAL IV ONE (07:10)
[2025-04-29] MEDS ORDERED: LIDOCAINE 2% 2 ML VIAL/AMP(20MG/ML) INFIL ONE (07:10)
[2025-04-29] MEDS ORDERED: ATROPINE SULFATE 0.1 MG/ML 10ML SYR IV PRN (07:21)
--- NOTE | 2025-04-29 08:14 | Post Operative Brief Note ---
Cardiology Brief Post Op Date of Surgery April 29, 2025 Pre & Post Diagnosis Operation Date: 04/29/25 07:30 <No data on this case meets the specified criteria> Procedure TEJA Burn Out Tender Lace See Anderson MD Crop Supervisor Carl Estimated Blood Loss 0 Findings See Below Preliminary findings: PFO with small [id number] interatrial shunt. Full report to follow.
--- NOTE | 2025-04-29 08:20 | Anesthesiology Progress Note ---
Date of Service April 29, 2025 Anesthesia Post Procedure Vital Signs Vital Signs: Temp Pulse Pulse Resp BP BP Pulse Ox 04/29/25 08:10 60 18 101/51 L 94 04/29/25 07:11 68 18 146/98 H 96 04/29/25 02:39 37.2 C 64 16 122/73 96 04/28/25 22:45 36.8 C 68 18 129/81 94 04/28/25 22:00 65 04/28/25 21:08 04/28/25 19:34 37 C 60 18 116/71 98 04/28/25 15:31 36.6 C 72 20 136/76 96 04/28/25 14:24 67 04/28/25 11:04 36.3 C L 64 18 130/75 97 O2 Del Method 04/29/25 08:10 Room Air 04/29/25 07:11 Room Air 04/29/25 02:39 Room Air 04/28/25 22:45 Room Air 04/28/25 22:00 04/28/25 21:08 Room Air 04/28/25 19:34 Room Air 04/28/25 15:31 Room Air 04/28/25 14:24 04/28/25 11:04 Room Air Transfer of Care Handoff Completed per policy Notes Mental Status: alert / awake / arousable Patient Amnestic to Procedure: Yes Nausea / Vomiting: adequately controlled Pain: adequately controlled Airway Patency, RR, SpO2: stable & adequate BP & HR: stable & adequate Hydration State: stable & adequate Anesthetic Complications: no major complications apparent
[2025-04-29] MEDS: BENZOCAINE/TETRACAIN/BUTAM 50 APPLN/5 GM CAN EXT ONE (09:46)
--- NOTE | 2025-04-29 11:07 | Cardiology Progress Note ---
Date of Service April 29, 2025 Assessment & Plan (1) PFO (patent foramen ovale): (2) Ischemic stroke: Plan ASSESSMENT/PLAN: 1. PFO: We discussed TEJA findings. Antiplatelet therapy as outlined by neurology. Recommend evaluation at a facility capable of PFO closure to explore possibility of PFO closure device. He would like to be seen [facility]. 2. Stroke: As per neurology. Plan as above in regards to PFO. Stroke occurred without antiplatelet therapy prior to the event. Recommend 30-day event monitor with consideration for loop recorder to evaluate for atrial fibrillation/flutter. 3. Disposition: Can be discharged home from a cardiology perspective. 30-day event monitor has been ordered in the outpatient setting. Follow-up in cardiology office in approximately 2 months. Will start referral process for [facility] evaluation for possible PFO closure device. Patient care communicated with Dr. Brizuela of the primary hospitalist service. Offered to update patient's in regards to cardiology care, plan, and TEJA findings but he declined and wants to discuss with his himself. Admission and Anticipated Discharge Date Admission Date: April 27, 2025 Subjective Patient was seen this morning before and after his transesophageal echo. He denies any new stroke symptoms. His dizziness has significantly improved since yesterday. He denies chest pain, shortness of breath, palpitations, edema, or bleeding. He tolerated transesophageal echo well. Physical Exam Physical Exam: Gen.: No acute distress. Alert and oriented. HEENT: Anicteric sclera. Neck: No JVD. Cardiac: Regular. Normal S1-S2. No murmurs, rubs, or gallops. Pulmonary: Clear to auscultation bilaterally without wheezes, rales, or rhonchi. Abdomen: Soft, nontender, nondistended, with normoactive bowel sounds. No bruits noted. Extremities: 2+ radial pulses bilaterally. 2+ posterior tibialis pulses bilaterally. No edema or cyanosis. Results & Data Vital Signs (Past 12 Hours) Vital Signs Temp Pulse Pulse Resp BP BP Pulse Ox 04/29/25 10:44 37 C 58 L 16 130/74 95 04/29/25 09:41 37 C 54 L 16 128/74 97 04/29/25 08:55 37.2 C 55 L 16 119/70 96 04/29/25 08:30 56 L 18 117/63 94 04/29/25 08:15 56 L 18 123/64 94 04/29/25 08:05 60 18 101/51 L 94 04/29/25 07:21 52 L 04/29/25 07:11 68 18 146/98 H 96 04/29/25 02:39 37.2 C 64 16 122/73 96 O2 Del Method 04/29/25 10:44 Room Air 04/29/25 09:41 Room Air 04/29/25 08:55 Room Air 04/29/25 08:30 Room Air 04/29/25 08:15 Room Air 04/29/25 08:05 Room Air 04/29/25 07:21 04/29/25 07:11 Room Air 04/29/25 02:39 Room Air Diagnostic Findings Telemetry personally reviewed: Sinus rhythm. No arrhythmia. Transesophageal echo demonstrated PFO and no other obvious source for cardioembolic event. Medications Administered Current Inpatient Medications Acetaminophen (Acetaminophen 500 Mg Tab) 1,000 mg PO Q8H PRN PRN Reason: Pain or Fever Stop: 05/27/25 16:13 Last Admin: 04/28/25 08:52 Dose: 1,000 mg Aspirin (Aspirin 81 Mg Ectab) 81 mg PO QAM [facility] Stop: 05/28/25 08:59 Last Admin: 04/29/25 10:40 Dose: 81 mg Atropine Sulfate (Atropine Sulfate 0.1 Mg/Ml 10ml Syr) 0.5 mg IV Q1M PRN PRN Reason: PACU Use-HR<40 &/or Bradycardi Stop: 04/29/25 15:21 Clopidogrel Bisulfate (Clopidogrel Bisulfate 75 Mg Tab) 75 mg PO [facility] Stop: 05/28/25 08:59 Last Admin: 04/29/25 10:41 Dose: 75 mg Enoxaparin Sodium (Enoxaparin Inj 40 Mg/0.4 Ml Syr) 40 mg SQ QAM [facility] Stop: 05/28/25 08:59 Last Admin: 04/29/25 10:41 Dose: 40 mg Ephedrine Sulfate (Ephedrine Sulfate 50 Mg/Ml Amp) 5 mg IV Q5M PRN PRN Reason: PACU Use Only-SBP<90 mmHg Stop: 04/29/25 15:21 Melatonin (Melatonin 3 Mg Tab) 3 mg PO HS PRN PRN Reason: Insomnia Stop: 05/27/25 13:28 Miscellaneous Information (Pharmacist Discharge Med Rec Consult) 1 each N/A UD PRN PRN Reason: Consult Stop: 05/27/25 13:28 Ondansetron HCl (Ondansetron Inj 2 Mg/Ml 2 Ml Vial) 4 mg IV Q6H PRN PRN Reason: Nausea Stop: 05/27/25 13:28 Last Admin: 04/28/25 09:56 Dose: 4 mg PG Care Time/CCT Total # of Minutes Spent Total Time Spent with Patient: Total time spent is greater than 50% in coordination of care (as documented) at patient's floor/unit and/or counseling patient: Coding Level of Care Code 93892 SUB INP/OBS CARE 3/50MIN Diagnoses PFO (patent foramen ovale) Q21.12 Ischemic stroke I63.9
--- NOTE | 2025-04-29 11:14 | Hospitalist Progress Note ---
Date of Service April 29, 2025 Assessment & Plan (1) Ataxia: (2) Dizziness: (3) Hyperbilirubinemia: Plan 45 year old male with no significant PMHx presents with acute onset vertigo with associated ambulatory dysfunction: #Dizziness // Gait ataxia: -CTH w/o contrast, CTA head and neck negative -Initial presentation suspicious for posterior circulation stroke vs vestibular neuritis - MRI brain w/o contrast confirms presence of acute right cerebellar infarct. - Echo showed PFO which points to the direction towards a paradoxical emboli. - MRV shows no venous thrombosis. - TTE pending. - Start DAPT x21 days followed by aspirin monotherapy - Minimal vascular risk factors (A1c 5%, LDL 89, BP WNL), more likely cardioembolic etiology vs other (vasculitis, ESR N) - Neurology consult placed, appreciate recs -Cardio consult recommend Transesophageal echo to better characterize the atrial septal defect as PFO versus ASD -Ordered D-dimer to R/o DVT. 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 Right hand coordination is better than yesterday but is still there. He denies chest pain, shortness of breath, palpitations, edema, or bleeding, or any new stroke symptoms. Review of Systems Review of Systems: as per HPI Physical Exam Physical Exam: Constitutional: no acute distress HEENT: NCAT, no conjunctival injection CV: RRR, extremities well-perfused, no LE edema Resp: Lungs clear to auscultation bilaterally, no increased work of breathing GI: nondistended MSK: no gross deformities, strength 5/5 in extremities, symmetrical bilaterally Skin: warm, dry, no rash appreciated Neuro: alert, oriented, no focal neurologic deficit appreciated. Cranial nn II- XII intact. Sensation intact, symmetrical bilaterally in face trunk and extremities. Strength 5/5 in upper and lower extremities, symmetrical bilaterally. +Romberg. Results & Data Results & Data Vital Signs (Past 12 Hours) Vital Signs Temp Pulse Pulse Resp BP BP Pulse Ox 04/29/25 10:44 37 C 58 L 16 130/74 95 04/29/25 09:41 37 C 54 L 16 128/74 97 04/29/25 08:55 37.2 C 55 L 16 119/70 96 04/29/25 08:30 56 L 18 117/63 94 04/29/25 08:15 56 L 18 123/64 94 04/29/25 08:05 60 18 101/51 L 94 04/29/25 07:21 52 L 04/29/25 07:11 68 18 146/98 H 96 04/29/25 02:39 37.2 C 64 16 122/73 96 O2 Del Method 04/29/25 10:44 Room Air 04/29/25 09:41 Room Air 04/29/25 08:55 Room Air 04/29/25 08:30 Room Air 04/29/25 08:15 Room Air 04/29/25 08:05 Room Air 04/29/25 07:21 04/29/25 07:11 Room Air 04/29/25 02:39 Room Air
[2025-04-29 11:23] LABS: Hematocrit (blood only) 43.8 % (42.0-52.0); Hemoglobin 15.2 g/dl (14.0-18.0); Immature Granulocytes # (auto) 0.02 K/uL (0.01-0.20); Immature Granulocytes % (auto) 0.3 %; Mean Corpuscular Hemoglobin 30.5 pg (25.0-34.0); Mean Corpuscular Volume 87.8 fL (80.0-100.0); Platelet Count 215 K/uL (130-400); RDW Standard Deviation 38.6 fL (36.4-46.3); Red Blood Count 4.99 M/uL (4.70-6.10); White Blood Count 6.46 K/ul (4.8-10.8)
[2025-04-29 11:24] VITALS: RESP 18; TEMP 98.4; O2SAT 96
[2025-04-29 11:46] LABS: Anion Gap 7.0 (3-11); Blood Urea Nitrogen 14.0 mg/dl (6-23); Calcium 9.1 mg/dl (8.6-10.3); Carbon Dioxide 27.0 mmol/L (21-32); Chloride 104.0 mmol/L (98-107); Creatinine Clr Calc Pharmacy 93.1 ml/min; Glucose 160.0 mg/dl (70-99(Fasting)); Potassium 4.1 mmol/L (3.5-5.1); Sodium 138.0 mmol/L (136-145)
[2025-04-29 11:47] LABS: Partial Thromboplastin Time 27 Seconds (21-31)
--- NOTE | 2025-04-29 15:54 | Ultrasound Report ---
BILATERAL LOWER EXTREMITY VENOUS DOPPLER HISTORY: Acute stroke like symptoms with lower extremity pain pfo, stroke COMPARISON STUDY: None. FINDINGS: There is normal compressibility, flow, and augmentation within the bilateral lower extremit y deep venous systems. IMPRESSION: No DVT within the right or left lower extremity. ACT 112: Negative or not required by law. Electronically signed by: Logan Gutierrez M.D. 04/29/2025 3:53 PM
[2025-04-29] MEDS ORDERED: STROKE PATIENT DISCHARGE STA (17:00)
[2025-04-29 17:04] VITALS: BP 130/74; PULSE 63
--- NOTE | 2025-04-29 17:24 | Discharge Summary ---
Discharge Summary Date of Service April 29, 2025 Principal Dx & Hospital Course #1 = Principal Diagnosis (1) Ischemic stroke: (2) PFO (patent foramen ovale): Plan cerebellar strokepresented with ataxia/dizziness, found to have cerebellar strokes that on imaging appeared to be embolic. Carotid/vertebrals clear, no atherosclerotic risks. Echocardiogram with PFO. No overt indication for anticoagulation at this time (venous Dopplers negative)therefore dual antiplatelet for now with aspirin plus Plavix for 3 weeks, then Plavix indefinitely. Hypercoagulable workup sent and pendingif he is positive, would give consideration (probably in discussion with the rest of his care team) if that would warrant switch from antiplatelet to anticoagulant. classroom monitor at home to screen for occult A-fib (although I suspect the PFO is the culprit). Evaluation at for whether or not he would benefit from PFO closure. PT eval and treat. Safe/stable for home/wants to go home/has good family support. Notes For Next Care Provider Medication Changes From Visit dual antiplatelet therapy with aspirin and Plavix for 3 weeks, then Plavix 75 mg daily indefinitely Admission HPI Per Admitting Provider 45 year old male with no significant PMHx presents with acute onset vertigo that started at 0630 this AM. Pt states that he immediately felt dizzy upon waking up, describes it as a spinning sensation. Constant but exacerbated with head position changes. Patient also experienced impaired balance, had a hard time walking straight after getting out of bed, denies favoring one side over the other. In addition to impaired balance, patient also states that he had bilateral LE weakness that contributed to gait impairment. Denies UE extremity weakness but states that he had transient bilateral UE numbness, now resolved. LE weakness now resolved as well. felt patient was mildly dysarthric initially, slurring slightly but patient did not necessarily notice any difference. Patient denies personal of FHx of stroke, [place], HTN, HLD, T2DM. Denies previous occurrence of similar sx. Denies recent illness, fever/chills. Denies changes in hearing acuity. Vertiginous sx have been continuous since waking up this morning, still present at this time though perhaps slightly less intense. Also reports nausea, brief episode of dry heaving first thing after getting up this morning. Denies significant EtOH or tobacco use. ED course: CT head w/o contrast, CTA head and neck all negative. S/P Plavix 300mg and ASA 81mg Discharge Exam In general he is awake and alert pleasant no distress. HEENT normocephalic atraumatic mucous membranes moist. Breathing unlabored no accessory muscle use good effort. Skin without rashes pallor or icterus. Neuro without focal deficits. Updated Medication List Medication Instructions Recorded Confirmed Type No Known Home Medications 11/10/24 04/27/25 History aspirin 81 mg tablet,delayed 81 mg PO QAM #21 tabs 04/29/25 Rx release clopidogrel 75 mg tablet 75 mg PO QAM #30 tabs 04/29/25 Rx Hospital Stay Data Consultations 04/27/25 17:50 Consult Neurology Routine 04/28/25 11:15 Consult Cardiology Routine 04/28/25 14:13 Consult Anesthesiology Routine Procedures Performed Operation Date: 04/29/25 07:30 Actual Procedures p Echo Transesophageal - See Anderson MD s Echo Doppler Complete - See Anderson MD s Echo Color Flow - See Anderson MD Diagnostic Imagining Performed 04/27/25 08:39 CT angio head w con Stat CT angio neck with con Stat CT head/brain wo con Stat 04/27/25 13:29 MR brain wo con Routine 04/28/25 09:18 MR venography head wo con Routine 04/29/25 11:11 US venous doppler LE BI Routine Pending Results Patient Have Any Pending Studies at Discharge: Yes ( Hypercoagulable labs) Discharge Instructions Given to Patient (Per Discharging Provider) cerebellar stroke - your dizzy/unsteadiness that started day of admission ended up being due to a stroke in your cerebellum. Stroke is where part of the brain tissue is actually killed offin your case appearing to be due to a clot. The cerebellum is the part of our brain that coordinates input as far as movement (and therefore it is a big part of the balance) - it appears that your stroke happened because of a "perfect storm" of different events coming togetheryou have what is called a patent foramen ovalethis is a hole in the atria (top chambers) of the heartall of us, when we are a fetus, have a patent foramen ovale so that blood can largely skip past the lungs (given that we do not need breathing to get oxygen). After we are born, and about 90% of us the foramen ovale closes, but that means that 10% or less it is always open. This allows a channel by which venous blood can "skip over" into the arterial circulation. The working theory on how a patent foramen ovale would lead to a stroke is that any kind of venous clotting is also reasonably commonand so if we have someone with venous clots who also ends up having a patent foramen ovale, the clots could either end up in the lungs (pulmonary embolism) or skipped over to the left side of the heart and be shot up to the brain (stroke) - typical management for stroke with a patent foramen ovale is to be on 2 antiplatelet medications (aspirin and Plavix together) for 3 weeks, followed by being only on 1 (in your case Plavix) indefinitely - The further workup (labs that would show a genetic propensity towards clotting) are largely to determine if he would benefit more from a slightly different blood thinner (an anticoagulant such as Eliquis instead of the antiplatelets you are on). These labs take about a week to come backand so they should be available for review when you follow-up in the office next week. - The "incidental further workup" (the cardiac event monitor) would be looking for heart rhythms like atrial fibrillation it would be an entirely different reason to form a clot and have a strokeexceedingly unlikely and you, but generically speaking one of the most common reasons someone would have a clot mediated stroke. If the event monitor surprised us and showed atrial fibrillation, that would also be a reason to switch from antiplatelet blood thinners (aspirin/Plavix) to anticoagulation blood thinners (such as Eliquis). - Further, the follow-up at [facility] will be because some people might benefit from having the patent foramen ovale closed. Like we talked, this has become much more nebulous as more research has been done20 years ago we thought that anyone who had a stroke who had a patent foramen ovale would benefit from closure; now we have realized that is often not the case. Because of this, the follow-up at [facility] will not just be to set up getting it closed, but really more to discuss and determine if it looks like he would actually benefit from that (and if so proceeding) versus if it is better left with medication management Recovery from the stroke - as we have been discussing, it is always impossible to truly predict how well someone is going to recover from a stroke, but we have a lot of reason for optimism with you. You are young and otherwise totally healthy, which tends to be a major factor in people making a better recovery; you are also showing us improvements already (which also suggests a better recovery) - at the beginning of recovery, it is important to try to do as much physical therapy as you possibly can, and when you are not working with physical therapy formally, doing what I call "performance therapy"for you things that would provoke your brain and body to try to work on balance (such as standing still with your eyes closedobviously be near something you could grab a hold of her having nearby at first), or trying to walk on a narrow line (such as putting a piece of tape down on the floor and trying to walk across it). Obviously when the physical therapist gives you exercises due to those as often as you can as well, and as you discussed, the whole athletic team you have at work can also be quite usefuldefinitely take advantage of their help to! - What we know about recovery is that the more you work on things early after the stroke, the better the chance of recovery is. Our body can never really will regrow the /damaged area, but it is pretty remarkable how well our brain can learn to work around it. It seems that brains can learn better to work around the or damaged area if we push the situation more in the immediate time. After having the stroke (as opposed to waiting until later, when our neural pathways seem to be more ingrained and less able to be plastic) - generally speaking, our physiology of balance and how we know where we are in space involves interplay of vision, proprioception, our inner ear, and our cerebellum. Vision let her brain know where we appear to be, proprioception on the nerves that tell us where her hands and feet are in space, our inner ear gives us a sense of relative motion, and our cerebellum coordinates all of these inputs. Given that your cerebellum is what sustained the damage, you can also utilize vision, and proprioception to help with balance (looking where you are going, or using extra touch pointssuch as having a hand on the wall or a railto give your brain more input) going back to workas we discussed, it may take a little while before you can do everything; at the same time using your expertise in your intellect for coaching/guidance from a chair is something that you could start really as soon as you feel up to it. As far as driving, you will definitely want to make sure that you have good balanceand that you are finding the pedals well with your feet, moving the steering wheel appropriately, and especially if you have to turn your head to check blind spots or 90 degree turnsthat you do not get off balance. What I would suggest is waiting until you feel like you are probably doing well enough to drive and would be reasonable. Then I would have a friend take you to an open parking lot (or somewhere where if you make a mistake there is 0 consequences)and then both you and your friend see how well you do. If you feel like you are doing well, and your passenger agrees, then you have probably gotten to where it is safe to drive again. With any question, obviously you can ask at the office in follow-up. Total Time Total Time Spent Total Time Spent (In Minutes): Greater than 30
--- NOTE | 2025-04-29 17:24 | Billing Data ---
Date of Service April 29, 2025 Coding Level of Care Code 69499 INP/OBS DISCH >30 MIN
--- NOTE | 2025-04-29 19:26 | XCELERA ---
[id number]
== END 2025-04-29 18:43 | disposition home or self-care (01) | DRG 65 ==
LOC: ED 08:36 → 2N 11:54
DX: R53.1 Weakness; E78.5 Hyperlipidemia, unspecified; R11.2 Nausea with vomiting, unspecified; E11.9 Type 2 diabetes mellitus without complications; R42 Dizziness and giddiness; I63.441 Cerebral infarction due to embolism of right cerebellar artery; E80.6 Other disorders of bilirubin metabolism; I25.2 Old myocardial infarction; I69.393 Ataxia following cerebral infarction; Q21.12 Patent foramen ovale